=== PATIENT | male | born 1970 | race Caucasian/White ===

== ENCOUNTER 2016-09-05 00:21 | Emergency (ER) | payer OTHER ==
[~2016-09-05] VITALS: Ht 170.2 cm; Wt 84.0 kg
[2016-09-05 00:27] VITALS: Ht 170.2 cm; Wt 84.0 kg
--- NOTE | 2016-09-05 00:40 | ERA ---
ER Documentation Chief Complaint Date/Time DATE: 09/05/16 TIME: 00:39 Chief Complaint Abdominal pain HPI The patient is a 45-year-old male, [facility] because of abdominal pain for the last 2 days intermittently, associated with diarrhea. He denies any hematochezia, denies fever, chills, neck pain, chest pain, dyspnea, dysuria. He smokes a pack a day, denies drinking, denies illicit drug Past medical history: None Past surgical history: Cholecystectomy ROS All systems reviewed and are negative except as per history of present illness. Medications Home Meds Active Scripts Ibuprofen* (Motrin*) 600 Mg Tab, 600 MG PO Q6H Y for PAIN AND OR ELEVATED TEMP, #30 TAB Prov:BOB WARNER MD 09/05/16 Allergies Allergies: Coded Allergies: No Known Drug Allergies (Verified Allergy, Unknown, 09/05/16) PMhx/Soc Medical and Surgical Hx: pt denies Medical Hx History of Surgery: Yes (gallbladder removal) Anesthesia Reaction: No Hx Alcohol Use: No Hx Substance Use: No Hx Tobacco Use: Yes Smoking Status: Current every day smoker Physical Exam Vitals Vital Signs Date Time Temp Pulse Resp B/P Pulse Ox O2 Delivery O2 Flow Rate FiO2 09/05/16 00:27 97.8 68 17 128/58 97 Physical Exam Const: No acute distress. Head: Atraumatic. Eyes: Normal Conjunctiva. ENT: Normal External Ears, Nose and Mouth. Neck: Full range of motion. No meningismus. Resp: Clear to auscultation bilaterally. Cardio: Regular rate and rhythm, no murmurs. Abd: Soft, non distended, normal bowel sounds, vague and minimal right -sided abdominal tenderness, no rigidity, rebound, CVA tenderness Skin: No petechiae or rashes. Back: No midline or flank tenderness. Ext: No cyanosis, or edema. Neur: Awake and alert. No focal deficit Psych: Normal Mood and Affect. Result Diagram: 09/05/16 00509/05/16 005 Results 24 hrs Laboratory Tests Test 09/05/16 00:50 09/05/16 01:40 White Blood Count 6.810^3/ul Red Blood Count 5.5710^6/ul Hemoglobin 16.5g/dl Hematocrit 47.8% Mean Corpuscular Volume 85.8fl Mean Corpuscular Hemoglobin 29.6pg Mean Corpuscular Hemoglobin Concent 34.5g/dl Red Cell Distribution Width 12.9% Platelet Count 98409^3/UL Mean Platelet Volume 10.7fl Neutrophils % 69.0% Lymphocytes % 25.2% Monocytes % 4.7% Eosinophils % 0.4% Basophils % 0.4% Nucleated Red Blood Cells % 0.0/100WBC Neutrophils # 4.710^3/ul Lymphocytes # 1.710^3/ul Monocytes # 0.310^3/ul Eosinophils # 0.010^3/ul Basophils # 0.010^3/ul Nucleated Red Blood Cells # 0.010^3/ul Sodium Level 143mmol/L Potassium Level 3.8mmol/L Chloride Level 104mmol/L Carbon Dioxide Level 27mmol/L Anion Gap 16 Blood Urea Nitrogen 15mg/dl Creatinine 0.69mg/dl Glucose Level 125mg/dl Calcium Level 9.3mg/dl Total Bilirubin 0.5mg/dl Direct Bilirubin 0.00mg/dl Indirect Bilirubin 0.5mg/dl Aspartate Amino Transf (AST/SGOT) 24IU/L Alanine Aminotransferase (ALT/SGPT) 44IU/L Alkaline Phosphatase 63IU/L Total Protein 7.6g/dl Albumin 4.4g/dl Globulin 3.20g/dl Albumin/Globulin Ratio 1.37 Lipase 81U/L Bedside Urine pH (LAB) 6.0 Bedside Urine Protein (LAB) Trace Bedside Urine Glucose (UA) Negative Bedside Urine Ketones (LAB) Negative Bedside Urine Blood Negative Bedside Urine Nitrite (LAB) Negative Bedside Urine Leukocyte Esterase (L Negative Current Medications Medications (Trade) Dose Ordered Sig/Homa Route PRN Reason Start Time Stop Time Status Last Admin Dose Admin Sodium Chloride (NS) 1,000 ml @ 1,000 mls/hr Q1H STAT IV 09/05/16 00:43 09/05/16 01:42 DC 09/05/16 00:58 Ketorolac Tromethamine (Toradol) 30 mg ONCE STAT IV 09/05/16 00:43 09/05/16 00:44 DC 09/05/16 00:58 Procedures/MDM [place] [id number] Radiology Main Line: [phone] DIAGNOSTIC IMAGING REPORT Patient: ALEJANDRO OLIVAS : 1970 Age: 45 Sex: M MR #: [id number] DOS: 09/05/16 0043 Ordering MD: BOB WARNER MD Location: E/R Room/Bed: PROCEDURE: CT Abdomen and Pelvis without contrast. CLINICAL INDICATION: Abdominal pain TECHNIQUE: CT scan of the abdomen and pelvis without contrast was performed on a multidetector high-resolution CT scanner. The patient was scanned without intravenous contrast. Coronal and sagittal reformatted images were obtained from the axial source images. Images were reviewed on a high-resolution PACS workstation. The total exam CTDI equals 14.1 mGy and the total exam DLP equals 900.32 mGy-cm. One or more the following dose reduction techniques were utilized: Automated exposure control, adjustment of the mA/ or kV according to patient's size, or use of iterative reconstruction technique. COMPARISON: None. FINDINGS: CT abdomen: Minimal dependent atelectasis posterior lower lungs. The heart size is normal, without pericardial thickening or effusion. The liver is normal in size and density without focal mass or intrahepatic biliary dilatation. The spleen is normal in size and homogeneous in density. The stomach is partially collapsed, but is grossly unremarkable. The pancreas as visualized is normal. No gallbladder is seen. There is no evidence for biliary dilatation. The adrenal glands are symmetric and normal. There is a 2 mm nonobstructing calcification in the mid right kidney. No abnormality seen in the left kidney. No hydronephrosis or ureteral stone is seen bilaterally. The aorta is of normal caliber. There is no retroperitoneal lymphadenopathy. The jose hepatis region is clear. The bowel and mesentery, as visualized, are unremarkable. CT pelvis: The small bowel loops situated within the pelvis are unremarkable. Multiple rounded calcific appearing densities in the scrotum bilaterally in the skin and extending externally of uncertain etiology. The pelvic sidewalls and inguinal regions are clear. The sigmoid colon and rectum are unremarkable. No mass, lymphadenopathy, or free fluid is seen. No acute inflammation is seen. There is no evidence of acute appendicitis. There is appearance of an unremarkable appendix partially delineated. Small scattered likely bone islands. Mild lumbar spondylosis. Small Schmorl's nodes in the thoracolumbar spine. IMPRESSION: 2 mm nonobstructing calcification in mid right kidney. Multiple rounded calcific appearing densities in the scrotum bilaterally in the skin and extending externally of uncertain etiology the largest 1.7 cm on the left. Please see above. RPTAT: HJES .Pelon Handy MD, MD Date Time Electronically viewed and signed by .Pelon Handy MD, MD on 09/05/2016 02:28 .S/ CC: BOB WARNER MD MEDICAL MAKING DECISION: The patient is a 45-year-old male, presenting with acute renal colic. He was treated with 1 L normal saline for clinical dehydration, Toradol 30 IV for pain with good response The differential diagnoses considered include but are not limited to cholelithiasis, cholecystitis, cystitis, pancreatitis, hepatitis, gastritis, peptic ulcer disease, gastric ulcer, appendicitis, diverticulitis, cholangitis, choledocholithiasis, partial small bowel obstruction. Departure Diagnosis: Primary Impression: Abdominal pain Additional Impression: Renal colic on right side Condition: Good Comments He was discharged with Motrin I discussed the findings with the patient. I advised the patient to follow-up with the primary physician in about 1-2 days, sooner if needed and return if any concern. The patient's blood pressure was elevated (>120/80) but appears stable without evidence of hypertension emergency or urgency. The patient was counseled about the risks of hypertension and urged to pursue outpatient monitoring and therapy within a week with their primary care physician. BOB WARNER MD September 05, 2016 00:39
[2016-09-05] MEDS ORDERED: KETOROLAC 30 MG INJ IV STA (00:43)
[2016-09-05] MEDS ORDERED: SOD CHLORIDE 0.9% 1,000 ML IV STA (00:43)
[2016-09-05 01:08] LABS: ADD SCAN DIFF NO
[2016-09-05 01:11] LABS: BASOPHILS % 0.4 % (0.0-2.0); EOSINOPHILS % 0.4 % (0.0-7.0); HEMATOCRIT 47.8 % (42.0-52.0); HEMOGLOBIN 16.5 g/dl (14.0-18.0); LYMPHOCYTES # 1.7 10^3/ul (0.8-2.9); LYMPHOCYTES % 25.2 % (15.0-51.0); MEAN CORPUSCULAR HEMOGLOBIN 29.6 pg (29.0-33.0); MEAN CORPUSCULAR HGB CONC 34.5 g/dl (32.0-37.0); MEAN CORPUSCULAR VOLUME 85.8 fl (82.0-101.0); MEAN PLATELET VOLUME 10.7 fl (7.4-10.4); MONOCYTE # 0.3 10^3/ul (0.3-0.9); MONOCYTES % 4.7 % (0.0-11.0); NEUTROPHIL # 4.7 10^3/ul (1.6-7.5); PLATELET COUNT 232 10^3/UL (140-415); RED BLOOD COUNT 5.57 10^6/ul (4.70-6.10); RED CELL DISTRIBUTION WIDTH 12.9 % (11.5-14.5); WHITE BLOOD COUNT 6.8 10^3/ul (4.8-10.8)
[2016-09-05 01:38] LABS: URINE BLOOD (Dip) POC Negative (NEGATIVE)
[2016-09-05 01:41] LABS: ALBUMIN 4.4 g/dl (3.3-4.9); ALBUMIN/GLOBULIN RATIO 1.37; BILIRUBIN,INDIRECT 0.5 mg/dl (0-1.1); BILIRUBIN,TOTAL 0.5 mg/dl (0.2-1.3); CALCIUM 9.3 mg/dl (8.4-10.2); CREATININE 0.69 mg/dl (0.61-1.24); POTASSIUM 3.8 mmol/L (3.5-5.1); TOTAL PROTEIN 7.6 g/dl (6.1-8.1)
--- NOTE | 2016-09-05 02:28 | RADRPT ---
PROCEDURE: CT Abdomen and Pelvis without contrast. CLINICAL INDICATION: Abdominal pain TECHNIQUE: CT scan of the abdomen and pelvis without contrast was performed on a multidetector hig h-resolution CT scanner. The patient was scanned without intravenous contrast. Coronal and sagittal reformatted images were obtained from the axial source images. Images were reviewed on a high-resol [employer] PACS workstation. The total exam CTDI equals 14.1 mGy and the total exam DLP equals 900.32 mGy -cm. One or more the following dose reduction techniques were utilized: Automated exposure control, adjus tment of the mA/ or kV according to patient's size, or use of iterative reconstruction technique. COMPARISON: None. FINDINGS: CT abdomen: Minimal dependent atelectasis posterior lower lungs. The heart size is normal, without pericardial thickening or effusion. The liver is normal in size and density without focal mass or intrahepatic biliary dilatation. The spleen is normal in size and homogeneous in density. The stomach is partia lly collapsed, but is grossly unremarkable. The pancreas as visualized is normal. No gallbladder is seen. There is no evidence for biliary dilatation. The adrenal glands are symmetric and normal. T here is a 2 mm nonobstructing calcification in the mid right kidney. No abnormality seen in the lef t kidney. No hydronephrosis or ureteral stone is seen bilaterally. The aorta is of normal caliber. There is no retroperitoneal lymphadenopathy. The jose hepatis r egion is clear. The bowel and mesentery, as visualized, are unremarkable. CT pelvis: The small bowel loops situated within the pelvis are unremarkable. Multiple rounded calcific appear ing densities in the scrotum bilaterally in the skin and extending externally of uncertain etiology. The pelvic sidewalls and inguinal regions are clear. The sigmoid colon and rectum are unremarkabl e. No mass, lymphadenopathy, or free fluid is seen. No acute inflammation is seen. There is no genet dence of acute appendicitis. There is appearance of an unremarkable appendix partially delineated. Small scattered likely bone islands. Mild lumbar spondylosis. Small Schmorl's nodes in the thoraco lumbar spine. IMPRESSION: 2 mm nonobstructing calcification in mid right kidney. Multiple rounded calcific appearing densities in the scrotum bilaterally in the skin and extending externally of uncertain etiology the largest 1 .7 cm on the left. Please see above. RPTAT: HJES .Pelon Handy MD, MD Date Time Electronically viewed and signed by .Pelon Handy MD, on 09/05/2016 02:28 .S/
[2016-09-05] MEDS ORDERED: IBUP-1542 PO (03:47)
== END 2016-09-05 04:06 | disposition home or self-care (01) ==
LOC: E/R 00:21
DX: N23 Unspecified renal colic (principal); F17.210 Nicotine dependence, cigarettes, uncomplicated
CPT/HCPCS: 74176; 80053; 81003; 83690; 85025; J1885; J7030; 36415; 96374